=== PATIENT | male | born 1950 ===

== ENCOUNTER 2022-03-05 10:29 | Outpatient (CLI) | payer OTHER | END 2022-03-05 10:35 | disposition home or self-care (01) | LOC: SONOGRAMA 10:29 | PROVIDERS: ATTEND Pathology Anatomic Pathology & Clinical Pathology | DX: D34 Benign neoplasm of thyroid gland (principal); E04.9 Nontoxic goiter, unspecified; E07.9 Disorder of thyroid, unspecified; E04.1 Nontoxic single thyroid nodule ==